=== PATIENT | female | born 1975 | race Caucasian/White ===

== ENCOUNTER 2017-03-16 10:32 | Inpatient (IN) | payer BC, MEDICAID ==
[2017-03-16] MEDS ORDERED: Mupirocin Oint 22 GM Tube TOP ONE (12:02)
--- NOTE | 2017-03-16 12:10 | EDM.PDOC ---
ED HPI GENERAL MEDICAL PROBLEM - General Chief Complaint: General Stated Complaint: Cellulitis Time Seen by Provider: 03/16/17 11:00 Source of Information: Reports: Patient History Limitations: Reports: No Limitations - History of Present Illness INITIAL COMMENTS - FREE TEXT/NARRATIVE: The patient is sent to the ER from clinic per Estefania Sanchez NP with concerns for cellulitis of left second toe and and left buttock and concerns for possible sepsis. The patient had superficial ulcerative wounds of the left buttock about 3-4 days ago with erythema, some purulent drainage, calor, and dolor. She has been showering daily but not applying antibiotic ointment or bandages. She reports yesterday she developed a superficial ulcerative wound of her left 2nd toe that is erythematous, has purulent drainage, calor, and dolor. She has also noted a red streak extending form her left 2nd toe up her left leg to her groin. She denies fever, chills, arthalgias, or myalgias. She denies other symptoms or complaints. She denies a history of MRSA infections. She is a current smoker and smokes 0.5 ppd for 23 years. Left Leg Pain Score (Numeric/FACES): 6 - Related Data Allergies Allergy/AdvReac Type Severity Reaction Status Date / Time No Known Allergies Allergy Verified 03/16/17 10:36 Home Meds: Home Meds Acetaminophen [Tylenol] 650 mg PO Q6HR PRN 03/16/17 [History] Ibuprofen 600 mg PO Q6HR PRN 03/16/17 [History] Past Medical History HEENT History: Reports: Sinusitis Respiratory History: Reports: Asthma - Infectious Disease History Infectious Disease History: Reports: Chicken Pox - Past Surgical History GI Surgical History: Reports: Cholecystectomy Social & Family History - Tobacco Use Smoking Status *Q: Current Every Day Smoker Years of Tobacco use: 23 Packs/Tins Daily: 0.5 - Recreational Drug Use Recreational Drug Use: No ED ROS GENERAL - Review of Systems Review Of Systems: ROS reveals no pertinent complaints other than HPI. ED EXAM, GENERAL - Physical Exam Exam: See Below Exam Limited By: No Limitations General Appearance: Alert, WD/WN, No Apparent Distress Eye Exam: Bilateral Eye: EOMI, Normal Inspection, PERRL Ears: Normal External Exam, Normal Canal, Hearing Grossly Normal, Normal TMs Ear Exam: Bilateral Ear: Auricle Normal, Canal Normal, TM normal Nose: Normal Inspection, Normal Mucosa, No Blood Throat/Mouth: Normal Inspection, Normal Lips, Normal Teeth, Normal Gums, Normal Oropharynx, Normal Voice, No Airway Compromise Head: Atraumatic, Normocephalic Neck: Normal Inspection, Supple, Non-Tender, Full Range of Motion. No: Lymphadenopathy (L), Lymphadenopathy (R), Tender Lateral, Tender Midline Respiratory/Chest: No Respiratory Distress, Lungs Clear, Normal Breath Sounds, No Accessory Muscle Use, Chest Non-Tender Cardiovascular: Normal Peripheral Pulses, Regular Rate, Rhythm, No Edema, No Gallop, No Murmur, No Rub Peripheral Pulses: 2+: Radial (L), Radial (R), Dorsalis Pedis (L), Dorsalis Pedis (R) GI/Abdominal: Normal Bowel Sounds, Soft, Non-Tender, No Organomegaly, No Distention Back Exam: Normal Inspection, Full Range of Motion. No: CVA Tenderness (L), CVA Tenderness (R), Paraspinal Tenderness, Vertebral Tenderness Extremities: Normal Inspection, Normal Range of Motion, Non-Tender, No Pedal Edema, Normal Capillary Refill, Other (Small 0.5 cm ulcerative wound of the left 2nd toe just medial and inferior to the toenail. No purulent drainage currently. Erythema and calor and induration noted. No fluctuance. There is a narrow approximately 0.5 cm erythematous streak extending up the left medial calf just inferior to the knee. There is no noted extension above the knee but the patient has discomfort extending up the anterior/medial thigh toward the groin. There are several superficial ulcerative lesions of the left buttock just lateral to the gluteal cleft with erythema and induration and no current purulent drainage and no fluctuance. ) Neurological: Alert, Oriented, CN II-XII Intact, Normal Cognition, Normal Gait, Normal Reflexes, No Motor/Sensory Deficits, Other (No dysmetria. Tone normal. No clonus or spasticity. ) Psychiatric: Normal Affect Skin Exam: Warm, Dry, Intact, Normal Color, No Rash Lymphatic: No Adenopathy Course - Vital Signs Last Recorded V/S: Last Vital Signs Temp 36.7 C 03/16/17 10:39 Pulse 112 H 03/16/17 10:39 Resp 18 03/16/17 10:39 BP 118/92 H 03/16/17 10:39 Pulse Ox 100 09/21/17 10:39 - Orders/Labs/Meds Orders: Active Orders 24 hr Category Date Time Status CULTURE BLOOD [BC] Stat Lab 03/16/17 12:03 Ordered CULTURE BLOOD [BC] Stat Lab 03/16/17 12:03 Ordered CULTURE WOUND [RM] Stat Lab 03/16/17 11:36 Uncollected CULTURE WOUND [RM] Stat Lab 03/16/17 11:37 Uncollected Mupirocin Oint [Bactroban Oint] Med 03/16/17 12:02 Once 1 gm TOP ONETIME ONE Blood Culture x2 Reflex Set [OM.PC] Stat Oth 03/16/17 12:03 Ordered Departure - Departure Time of Disposition: 12:21 Disposition: Home, Self-Care 01 Clinical Impression: Cellulitis of left leg, SIRS (systemic inflammatory response syndrome), Neutrophilic leukocytosis - Discharge Information Referrals: Estefania Sanchez, SENIOR MEDICAL BILLING SPECIALIST [Primary Care Provider] - - My Orders Last 24 Hours: My Active Orders 03/16/17 11:36 CULTURE WOUND [RM] Stat 03/16/17 11:37 CULTURE WOUND [RM] Stat 03/16/17 12:02 Mupirocin Oint [Bactroban Oint] 1 gm TOP ONETIME ONE 03/16/17 12:03 CULTURE BLOOD [BC] Stat CULTURE BLOOD [BC] Stat Blood Culture x2 Reflex Set [OM.PC] Stat - Assessment/Plan Last 24 Hours: My Active Orders 03/16/17 11:36 CULTURE WOUND [RM] Stat 03/16/17 11:37 CULTURE WOUND [RM] Stat 03/16/17 12:02 Mupirocin Oint [Bactroban Oint] 1 gm TOP ONETIME ONE 03/16/17 12:03 CULTURE BLOOD [BC] Stat CULTURE BLOOD [BC] Stat Blood Culture x2 Reflex Set [OM.PC] Stat Assessment:: Cellulitis of left leg. SIRS. Leukocytosis with neutrophilia. Plan: 1. Wound cultures collected and in clinic from left 2nd toe and left buttock. 2. Blood cultures x 2 in ER. 3. Admit to acute inpatient. 4. Wounds cleansed in ER and Bactroban applied to wounds and sterile dressings applied. 5. Start vancomycin 1,200 mg IV Q 12 hours. 6. Follow cultures and adjust as needed. 7. JUSTIN fowler, SCD's, and Lovenox for DVT prophylaxis. 8. Incentive spirometer for pneumonia prophylaxis.
[2017-03-16] MEDS: Vancomycin 1.2 GM in Sodium Chloride 0.9% 250 ML IV SCH (13:30)
[2017-03-16] MEDS: Sodium Chloride 0.9% 1,000 ML IV SCH (13:31)
[2017-03-16] MEDS: Enoxaparin 40 MG/0.4 ML Syringe SUBCUT SCH (13:31)
--- NOTE | 2017-03-16 13:34 | PCM.HPR ---
H & P Addendum review - H & P Addendum Review Date of Original H & P: 03/16/17 (Admitted from ER for cellulitis of left leg and SIRS. See ER note for full H & P. ) Date Reviewed: 03/16/17 Time Reviewed: 12:35 Patient was Examined: No Changes
[2017-03-16] MEDS ORDERED: Sodium Chloride 0.9% 10 ML Syringe FLUSH PRN (14:27)
[2017-03-16] MEDS ORDERED: Nicotine 14 MG/24 Hr Patch ONE (14:34)
[2017-03-16] MEDS ORDERED: Nicotine 14 MG/24 Hr Patch TRDERM ONE (14:38)
[2017-03-16] MEDS: Acetaminophen 325 MG Tab PO PRN (20:35)
[2017-03-17] MEDS: Vancomycin 1.2 GM in Sodium Chloride 0.9% 250 ML IV SCH (00:30)
[2017-03-17] MEDS: Sodium Chloride 0.9% 1,000 ML IV SCH (03:50)
[2017-03-17 07:29] LABS: CHLORIDE,CL 106 mmol/L (98-107); SODIUM,NA 138 mmol/L (136-145)
[2017-03-17] MEDS: Enoxaparin 40 MG/0.4 ML Syringe SUBCUT SCH (07:33)
[2017-03-17] MEDS: Acetaminophen 325 MG Tab PO PRN (07:34)
[2017-03-17] MEDS ORDERED: Nicotine 14 MG/24 Hr Patch TRDERM SCH (08:00)
[2017-03-17] MEDS ORDERED: Remove Patch NICOTINE PATCH TRDERM SCH (08:00)
[2017-03-17] MEDS ORDERED: Mupirocin Oint 22 GM Tube TOP SCH (08:00)
--- NOTE | 2017-03-17 11:40 | PCM.DCSUM1 ---
Discharge Summary - Hospital Course Free Text/Narrative:: Admitted 03/16/2017 with cellulitis of left 2nd toe, left leg, and left/right buttocks and signs/symptoms consistent with SIRS. Wound and blood cultures collected and started on IV Vancomycin 1.2 grams IV every 12 hours. Improvement with retraction of margins of cellulitis and patient feels subjective improvement in lethargy and fever/chills/bodyaches. Patient desires discharge home with IV antibiotics as outpatient. Feel that is reasonable at this time. Will plan to discharge with IV Vancomycin 1.2 grams IV every 12 hours for 7 days. Will also prescribe Bactroban to apply to lesions of toe and buttocks. Will continue to follow cultures and adjust antibiotic regimen as necessary. Will have providers examine the wound every other day. - Discharge Data Discharge Date: 03/17/17 Discharge Disposition: Home, Self-Care 01 Condition: Good - Discharge Diagnosis/Problem(s) (1) Cellulitis of left leg SNOMED Code(s): 492532937 ICD Code: L03.116 - CELLULITIS OF LEFT LOWER LIMB Status: Acute Priority : High Current Visit: Yes Problem Details: Improved erythema and induration with first day course of Vancomycin. WBC count dropped and normal heart rate and no signs/symptoms currently of sepsis. (2) Cellulitis of buttock, left SNOMED Code(s): 39834693 ICD Code: L03.317 - CELLULITIS OF BUTTOCK Status: Acute Priority: High Current Visit: Yes Problem Details: Improved erythema and induration with first day course of Vancomycin. WBC count dropped and normal heart rate and no signs/symptoms currently of sepsis. (3) Cellulitis of buttock, right SNOMED Code(s): 00940187 ICD Code: L03.317 - CELLULITIS OF BUTTOCK Status: Acute Current Visit: Yes Problem Details: Improved erythema and induration with first day course of Vancomycin. WBC count dropped and normal heart rate and no signs/symptoms currently of sepsis. (4) Neutrophilic leukocytosis SNOMED Code(s): 393370811, 323216050 ICD Code: D72.9 - DISORDER OF WHITE BLOOD CELLS, UNSPECIFIED Status: Acute Priority: High Current Visit: Yes Problem Details: Resolved with antibiotic. (5) SIRS (systemic inflammatory response syndrome) SNOMED Code(s): 782637600 ICD Code: R65.10 - SIRS OF NON-INFECTIOUS ORIGIN W/O ACUTE ORGAN DYSFUNCTION Status: Acute Priority: High Current Visit: Yes Problem Details: Resolved with antibiotic. - Patient Summary/Data Consults: Consultations 03/16/17 12:59 Pharmacy Consult [Consult to Pharmacy] [CONS] Routine - Patient Instructions Diet: Usual Diet as Tolerated Activity: As Tolerated Driving: May Drive Today Showering/Bathing: May Shower Wound/Incision Care: Change Dressing Daily Notify Provider of: Fever, Increased Pain, Swelling and Redness, Drainage - Discharge Plan Prescriptions/Med Rec: Mupirocin Oint [Bactroban Oint] 1 gm TOP DAILY #1 tube Vancomycin 1.2 gm IV Q12H 7 Days sdv Home Medications: Home Meds Mupirocin Oint [Bactroban Oint] 1 gm TOP DAILY #1 tube 03/17/17 [Rx] Vancomycin 1.2 gm IV Q12H 7 Days sdv 03/17/17 [Rx] Patient Handouts: Cellulitis, Adult, Vancomycin injection Forms: ED Department Discharge Referrals: Estefania Sanchez NP [Primary Care Provider] - - Discharge Summary/Plan Comment DC Time >30 min.: No - General Info Date of Service: 03/17/17 Admission Dx/Problem (Free Text: Cellulitis of left leg, left and right buttock. SIRS. Functional Status: Reports: Pain Controlled - Review of Systems General: Reports: No Symptoms HEENT: Reports: No Symptoms Pulmonary: Reports: No Symptoms Cardiovascular: Reports: No Symptoms Gastrointestinal: Reports: No Symptoms Genitourinary: Reports: No Symptoms Musculoskeletal: Reports: No Symptoms Skin: Reports: No Symptoms Neurological: Reports: No Symptoms Psychiatric: Reports: No Symptoms - Patient Data Vitals - Most Recent: Last Vital Signs Temp 36.2 C 03/17/17 07:42 Pulse 80 03/17/17 07:42 Resp 14 03/17/17 07:42 BP 110/60 03/17/17 07:42 Pulse Ox 98 03/17/17 07:42 Weight - Most Recent: 73.028 kg I&O - Last 24 hours: Intake & Output 03/16/17 03/17/17 03/17/17 22:59 06:59 14:59 Intake Total 1540 1260 360 Balance 1540 1260 360 Lab Results - Last 24 hrs: Laboratory Results - last 24 hr 03/17/17 03/17/17 Range/Units 06:55 06:55 WBC 10.7 H (4.0-10.2) K/uL RBC 3.95 (3.77-5.09) M/uL Hgb 12.7 (11.7-15.5) g/dL Hct 37.6 (34.0-46.0) % MCV 95.2 (84.0-98.0) fL MCH 32.2 (28.2-33.3) pg MCHC 33.8 (31.7-36.0) g/dL RDW 12.8 (11.2-14.1) % Plt Count 239 (150-350) K/uL Neut % (Auto) 70.6 (45.0-80.0) % Lymph % (Auto) 18.3 (10.0-50.0) % [place] % (Auto) 8.8 (2.0-14.0) % Eos % (Auto) 2.1 (0.0-5.0) % Baso % (Auto) 0.2 (0.0-2.0) % Neut # (Auto) 7.54 H (1.40-7.00) K/uL Lymph # (Auto) 1.95 (0.50-3.50) K/uL [place] # (Auto) 0.94 (0.00-1.00) K/uL Eos # (Auto) 0.22 (0.00-0.50) K/uL Baso # (Auto) 0.02 (0.00-0.20) K/uL Sodium 138 (136-145) mmol/L Potassium 3.6 (3.5-5.1) mmol/L Chloride 106 (98-107) mmol/L Carbon Dioxide 24.8 (21.0-32.0) mmol/L BUN 5 L (7-18) mg/dL Creatinine 0.70 (0.51-1.17) mg/dL Est Cr Clr Drug Dosing 85.69 mL/min Estimated GFR (MDRD) > 60 mL/min Glucose 113 H (74-106) mg/dL Calcium 8.7 (8.5-10.1) mg/dL Total Bilirubin 0.5 (0.2-1.0) mg/dL AST 8 L (15-37) U/L ALT 16 (12-78) U/L Alkaline Phosphatase 86 (46-116) IU/L C-Reactive Protein 7.4 H (<=0.9) mg/dL Total Protein 6.4 (6.4-8.2) g/dL Albumin 2.9 L (3.4-5.0) g/dL Med Orders - Current: Current Medications Acetaminophen (Tylenol) 650 mg PO Q6HR PRN PRN Reason: Pain/Fever Last Admin: 03/17/17 07:34 Dose: 650 mg Enoxaparin Sodium (Lovenox) 40 mg SUBCUT DAILY [facility] Last Admin: 03/17/17 07:33 Dose: 40 mg Vancomycin HCl 1.2 gm/ Sodium (Chloride) 250 mls @ 135 mls/hr IV Q12H [facility] Last Admin: 03/17/17 00:30 Dose: 135 mls/hr Sodium Chloride (Normal Saline) 1,000 mls @ 100 mls/hr IV ASDIRECTED [facility] Last Admin: 03/17/17 03:50 Dose: 100 mls/hr Miscellaneous Information (Remove Patch) 1 ea TRDERM DAILY [facility] Last Admin: 03/17/17 07:34 Dose: 1 ea Mupirocin (Bactroban Oint) 1 gm TOP DAILY [facility] Last Admin: 03/17/17 07:33 Dose: 1 applic Nicotine (Habitrol) 14 mg TRDERM DAILY [facility] Last Admin: 03/17/17 07:33 Dose: 14 mg Sodium Chloride (Saline Flush) 10 ml FLUSH ASDIRECTED PRN PRN Reason: Keep Vein Open Discontinued Medications Mupirocin (Bactroban Oint) 1 gm TOP ONETIME ONE Stop: 03/16/17 12:03 Last Admin: 03/16/17 12:42 Dose: 1 applic Nicotine (Habitrol) Confirm Administered Dose 14 mg .ROUTE .STK-MED ONE Stop: 03/16/17 14:35 Last Admin: 03/16/17 14:44 Dose: Not Given Nicotine (Habitrol) 14 mg TRDERM ONETIME ONE Stop: 03/16/17 14:39 Last Admin: 03/16/17 14:51 Dose: 14 mg - Exam General: Reports: Alert, Oriented HEENT: Reports: Pupils Equal, Pupils Reactive, EOMI, Mucous Membr. Moist/[place] Neck: Reports: Supple Lungs: Reports: Clear to Auscultation, Normal Respiratory Effort Cardiovascular: Reports: Regular Rate, Regular Rhythm GI/Abdominal Exam: Normal Bowel Sounds, Soft, Non-Tender, No Organomegaly, No Distention, No Mass Back Exam: Reports: Normal Inspection, Full Range of Motion. Denies: CVA Tenderness (L), CVA Tenderness (R), Paraspinal Tenderness, Vertebral Tenderness Extremities: Normal Inspection, Normal Range of Motion, Non-Tender, No Pedal Edema, Normal Capillary Refill Skin: Reports: Warm, Dry, Intact, Other (Ulcerative wound of left 2nd toe smaller with less erythema and induration. No purlulent drainage or fluctuance. Retraction of margins of cellulitis of left lower leg from marker margins. Ulcerative wounds on bilateral buttocks improved as well with diminished erythema and induration and no purlulent drainage or fluctuance.) Wound/Incisions: Reports: Healing Well Neurological: Reports: No New Focal Deficit Psy/Mental Status: Reports: Alert, Normal Affect, Normal Mood *Q Meaningful Use (DIS) - VTE *Q VTE Criteria *Q: - Stroke *Q Stroke Criteria *Q: - AMI *Q AMI Criteria *Q:
[2017-03-17 12:21] VITALS: BP 117/68
[2017-03-17] MEDS ORDERED: Vancomycin 1.5 GM in Sodium Chloride 0.9% 500 ML IV SCH (13:00)
== END 2017-03-17 16:10 | disposition home or self-care (01) | DRG 383 ==
LOC: LL.ED 10:32 → LL.MS 12:15
PROVIDERS: ADMIT Surgery; ATTEND Surgery
DX: L03.317 Cellulitis of buttock (principal); L03.032 Cellulitis of left toe; R65.10 Systemic inflammatory response syndrome (SIRS) of non-infectious origin without acute organ dysfunction; F17.210 Nicotine dependence, cigarettes, uncomplicated; D72.9 Disorder of white blood cells, unspecified
CPT/HCPCS: 36000; 36415; 80053; 80202; 85025; 86140; 87040; 87070; 87077; 87186; 99284; A9270-GY; J1650; J3370; J7030; J7040; J7050